=== PATIENT | female | born 1950 | race Caucasian/White ===

== ENCOUNTER 2019-03-27 13:50 | Inpatient (IN) ==
[2019-03-27] MEDS: ALBUTEROL/IPRATROPIUM 3 ML NEB RESP TX SCH ×2 (13:52→19:18)
[2019-03-27] MEDS ORDERED: DOCUSATE SODIUM 100 MG CAPSULE PO PRN (14:05)
[2019-03-27] MEDS ORDERED: ACETAMINOPHEN 325 MG TABLET PO PRN (14:05)
[2019-03-27] MEDS ORDERED: ONDANSETRON 4 MG/2 ML VIAL IV PRN (14:05)
[2019-03-27] MEDS ORDERED: DEXTROMETHORPHAN ER 6 MG/ML 90 ML/BOTTLE PO PRN (14:15)
[2019-03-27] MEDS ORDERED: methylPREDNISolone SOD SUC 125 MG/2 ML VIAL IV ONE (16:00)
[2019-03-27 16:03] LABS: Basophils # 0.1 10*3/uL (0.0-0.2); Eosinophils # 0.3 10*3/uL (0.0-0.87); Hematocrit 42.1 VOL% (35.7-47.0); Hemoglobin 13.6 GM/DL (12.0-16.0); Immature Granulocytes % 1.6 %; Immature Granulocytes Absolute 0.18 #; Lymphocytes # 3.9 10*3/uL (1.4-4.0); Lymphocytes % 34.3 % (21.3-54.2); Mean Corpuscular HGB Conc 32.3 GM/DL (32-36); Mean Corpuscular Volume 94.4 FL (87-102); Mean Platelet Volume 9.1 FL (9.6-12.0); Monocytes % 9.1 % (1.7-12.7); Platelet Count 476 T/CUMM (130-400); Red Blood Count 4.46 MC/CUMM (3.8-5.5); Red Cell Distribution Width 14.8 % (9.3-17.3); White Blood Count 11.4 T/CUMM (4-12)
[2019-03-27 16:20] LABS: Albumin 3.1 G/DL (3.4-5.0); Bilirubin,Total 0.9 MG/DL (0.2-1.0); Calcium 9.2 MG/DL (8.5-10.1); Osmolality,Calculated 270.8 MOS/KG (273-304); Total Protein 7.7 G/DL (6.4-8.3)
[2019-03-27 16:36] LABS: Anisocytosis 1+; Band Neutrophils 1 % (0-10); Eosinophils 2 % (0-10); Lymphocytes 36 % (20-55); Platelet Estimate Normal; Segmented Neutrophils 54 % (50-85); Total Cells Counted 100
[2019-03-27 16:37] LABS: Macrocytosis 1+; Microcytosis Slight
[2019-03-27] MEDS: SODIUM CHLORIDE 0.9% 1,000 ML IV SCH (17:01)
[2019-03-27] MEDS: LEVOFLOXACIN INJ 500 MG in PREMIX 1 EACH IV SCH (17:04)
[2019-03-27] MEDS: ENOXAPARIN 40 MG/0.4 ML SYRINGE SUBCUT SCH (17:07)
[2019-03-27 18:23] LABS: Apearance,Urine Slightly Cloudy (Clear); Bilirubin,Urine Negative (Negative); Blood, Urine Negative (Negative); Glucose,Urine (UA) Negative (Negative); Ketones,Urine Negative (Negative); Nitrite,Urine Negative (Negative); Protein,Urine Negative; Urine Color Straw (Yellow); Urine Specific Gravity 1.005 (1.001-1.035); Urine Urobilinogen 0.2 EU/DL (0.2-1.0)
[2019-03-27 18:24] LABS: Calcium Oxalate Crystals,Urine Few /HPF (Few); RBC,Urine Rare /HPF (0-4); Squamous Epithelial Cell,Urine Occasional /HPF (0-10); Transitional Epi Cells,Urine None Seen /HPF (<1); WBC,Urine Negative /HPF (0-6)
[2019-03-27] MEDS: carvediloL 12.5 MG TABLET PO SCH (20:51)
[2019-03-28] MEDS: methylPREDNISolone SOD SUC 40 MG/1 ML VIAL IV SCH ×3 (00:12→16:40)
[2019-03-28] MEDS: BENZONATATE 100 MG CAPSULE PO PRN ×3 (00:16→22:21)
[2019-03-28] MEDS: ALBUTEROL/IPRATROPIUM 3 ML NEB RESP TX SCH ×4 (01:15→19:14)
[2019-03-28] MEDS: SODIUM CHLORIDE 0.9% 1,000 ML IV SCH ×3 (06:38→21:04)
[2019-03-28] MEDS ORDERED: LOSARTAN/HCTZ 50-12.5 MG TABLET PO SCH (09:00)
[2019-03-28] MEDS: ROSUVASTATIN 10 MG TABLET PO SCH (10:18)
[2019-03-28] MEDS: NICOTINE 21 MG/24 HR PATCH TRANSDERM SCH (10:18)
[2019-03-28] MEDS: LOSARTAN/HCTZ 50-12.5 MG TABLET PO SCH (10:19)
[2019-03-28] MEDS: PANTOPRAZOLE 40 MG TABLET PO SCH (10:20)
[2019-03-28] MEDS: SERTRALINE 50 MG TABLET PO SCH (10:20)
[2019-03-28] MEDS: carvediloL 12.5 MG TABLET PO SCH ×2 (10:20→16:40)
[2019-03-28] MEDS: LEVOFLOXACIN INJ 500 MG in PREMIX 1 EACH IV SCH (10:20)
[2019-03-28] MEDS: cefTRIAXone 1,000 MG in SYRINGE 1 EACH IV SCH (10:21)
[2019-03-28] MEDS: ENOXAPARIN 40 MG/0.4 ML SYRINGE SUBCUT SCH (16:40)
[2019-03-28] MEDS: MONTELUKAST 10 MG TABLET PO SCH (16:40)
[2019-03-28] MEDS: cloNIDine 0.1 MG TABLET PO SCH (20:49)
[2019-03-28] MEDS ORDERED: TEMAZEPAM 15 MG CAPSULE PO PRN (20:58)
[2019-03-29] MEDS: methylPREDNISolone SOD SUC 40 MG/1 ML VIAL IV SCH ×3 (00:13→22:04)
[2019-03-29] MEDS: HYDROcodone/CHLORPHENIRAMINE ER 5 ML UDCUP PO PRN (00:16)
[2019-03-29] MEDS: ALBUTEROL/IPRATROPIUM 3 ML NEB RESP TX SCH ×4 (00:56→19:47)
[2019-03-29] MEDS: cloNIDine 0.1 MG TABLET PO SCH ×4 (05:18→22:04)
[2019-03-29] MEDS: carvediloL 12.5 MG TABLET PO SCH ×2 (09:27→17:08)
[2019-03-29] MEDS: SERTRALINE 50 MG TABLET PO SCH (09:27)
[2019-03-29] MEDS: ROSUVASTATIN 10 MG TABLET PO SCH (09:27)
[2019-03-29] MEDS: LOSARTAN/HCTZ 50-12.5 MG TABLET PO SCH (09:27)
[2019-03-29] MEDS: PANTOPRAZOLE 40 MG TABLET PO SCH (09:27)
[2019-03-29] MEDS: NICOTINE 21 MG/24 HR PATCH TRANSDERM SCH (09:32)
[2019-03-29] MEDS: BENZONATATE 100 MG CAPSULE PO PRN (09:33)
[2019-03-29] MEDS: cefTRIAXone 1,000 MG in SYRINGE 1 EACH IV SCH (09:35)
[2019-03-29] MEDS: LEVOFLOXACIN INJ 500 MG in PREMIX 1 EACH IV SCH (09:38)
[2019-03-29] MEDS: SODIUM CHLORIDE 0.9% 1,000 ML IV SCH (11:09)
[2019-03-29] MEDS: MONTELUKAST 10 MG TABLET PO SCH (17:08)
[2019-03-29] MEDS: ENOXAPARIN 40 MG/0.4 ML SYRINGE SUBCUT SCH (17:08)
[2019-03-30] MEDS: HYDROcodone/CHLORPHENIRAMINE ER 5 ML UDCUP PO PRN (01:39)
[2019-03-30] MEDS: ALBUTEROL/IPRATROPIUM 3 ML NEB RESP TX SCH ×2 (02:18→07:13)
[2019-03-30 08:11] VITALS: BP 204/89
[2019-03-30] MEDS ORDERED: POTASSIUM CHLORIDE 20 MEQ TABLET PO ONE (09:00)
[2019-03-30] MEDS: SERTRALINE 50 MG TABLET PO SCH (09:48)
[2019-03-30] MEDS: LOSARTAN/HCTZ 50-12.5 MG TABLET PO SCH (09:48)
[2019-03-30] MEDS: ROSUVASTATIN 10 MG TABLET PO SCH (09:48)
[2019-03-30] MEDS: PANTOPRAZOLE 40 MG TABLET PO SCH (09:49)
[2019-03-30] MEDS: methylPREDNISolone SOD SUC 40 MG/1 ML VIAL IV SCH (09:49)
[2019-03-30] MEDS: NICOTINE 21 MG/24 HR PATCH TRANSDERM SCH (09:49)
[2019-03-30] MEDS: carvediloL 12.5 MG TABLET PO SCH (09:49)
[2019-03-30] MEDS: LEVOFLOXACIN INJ 500 MG in PREMIX 1 EACH IV SCH (09:51)
== END 2019-03-30 11:20 | disposition home or self-care (01) | DRG 190 ==
LOC: N.2E → OBSVTOIN 14:23 → INTOOBSV 14:23
PROVIDERS: ADMIT Family Medicine; ATTEND Family Medicine